=== PATIENT | female | born 1970 | race African-American/Black ===

== ENCOUNTER 2018-08-22 04:49 | Emergency (ER) | payer MEDICARE, MEDICAID ==
[~2018-08-22] VITALS: Ht 170.2 cm; Wt 98.0 kg
[~2018-08-22 04:49] MED LIST: FENT1PAT4 TP
[2018-08-22 06:39] LABS: BASOPHILS % 0.7 % (0.0-2.0); EOSINOPHILS % 2.3 % (0.0-5.0); HEMATOCRIT. 32.2 % (36.0-48.0); HEMOGLOBIN. 10.5 g/dL (12.0-16.0); LYMPHOCYTES % 19.9 % (20.0-50.0); MEAN CORPUSCULAR HEMOGLOBIN 27.9 pg (28.0-32.0); MEAN CORPUSCULAR VOLUME 85.2 fL (81.0-99.0); MEAN PLATELET VOLUME 10.1 fl (7.4-10.4); MONOCYTES % 11.3 % (2.0-8.0); NEUTROPHILS % 65.8 % (40.0-76.0); PLATELET 197 x1000/uL (130-400); RED BLOOD CELL COUNT 3.78 mill/uL (4.2-5.4)
[2018-08-22 06:42] LABS: CHLORIDE 106 mEq/L (98-107)
[2018-08-22 11:29] VITALS: BP 115/65
[2018-09-18] MEDS ORDERED: TRIC54 MT (04:08)
[2018-09-18] MEDS ORDERED: DICL25TA2 MT (04:08)
[2018-09-18] MEDS ORDERED: [UNRECOGNIZED DRUG - CODE] MT (04:08)
== END 2018-08-22 11:30 | disposition home or self-care (01) ==
LOC: ER 04:49
DX: R00.2 Palpitations (principal); R07.89 Other chest pain; R20.2 Paresthesia of skin; F17.210 Nicotine dependence, cigarettes, uncomplicated; M35.00 Sjogren syndrome, unspecified; Z98.84 Bariatric surgery status; Z90.710 Acquired absence of both cervix and uterus
CPT/HCPCS: 36415; 71045; 83735; 83880; 84484; 93005; 99284